=== PATIENT | female | born 1990 | race Caucasian/White ===

== ENCOUNTER 2024-06-29 09:07 | Inpatient (IN) | payer BC ==
[2024-06-11 09:31] VITALS: BMI 21.6
[2024-07-05] MEDS: Lactated Ringer's 1,000 ML IV SCH (19:40)
[2024-07-05] MEDS ORDERED: Carboprost 250 MCG/ML AMP IM PRN (21:07)
[2024-07-05] MEDS ORDERED: Promethazine HCl 25 MG/ML VIAL IM PRN ×2 (21:07→22:15)
[2024-07-05] MEDS ORDERED: fentaNYL 50 mcg/mL 1 mL Vial SLOW IVP PRN (21:07)
[2024-07-05] MEDS ORDERED: Lidocaine 1% (PF) 30 ML VIAL SC PRN (21:07)
[2024-07-05] MEDS ORDERED: Acetaminophen 500 MG TAB PO PRN (21:07)
[2024-07-05] MEDS ORDERED: hydrALAZINE 20 MG/ML VIAL SLOW IVP PRN (21:07)
[2024-07-05] MEDS ORDERED: Ondansetron PF 4 MG/2 ML Vial IVP PRN ×2 (21:07→22:15)
[2024-07-05] MEDS ORDERED: Diphenoxylate HCl/Atropine Tablet PO PRN (21:07)
[2024-07-05] MEDS ORDERED: Misoprostol 200 MCG TAB PR PRN (21:07)
[2024-07-05] MEDS ORDERED: Methylergonovine 0.2 MG/ML VIAL IM PRN (21:07)
[2024-07-05] MEDS ORDERED: Ibuprofen 800 MG TAB PO PRN (21:07)
[2024-07-05] MEDS ORDERED: HYDROcodone/Acetaminophen 5/325 mg Tablet PO PRN (21:07)
[2024-07-05] MEDS ORDERED: Oxytocin 30 units/NS 500 ML 500 ML IV SCH (21:15)
[2024-07-05 21:22] LABS: Hematocrit 38.4 % (34.9-44.5); Hemoglobin 13.8 g/dL (12.0-15.5); Mean Corpuscular HGB CONC 35.9 g/dL (32.0-36.0); Mean Corpuscular Hemoglobin 33.7 pg (27.0-33.0); Mean Corpuscular Volume 93.7 fL (81.6-98.3); Mean Platelet Volume 11.1 fL (7.4-10.4); Platelet Count 132 10x3/uL (150-450); White Blood Cell (WBC) Count 6.2 10x3/uL (3.5-10.5)
[2024-07-05 21:46] LABS: HBsAg Index 0.25 S/CO (0-0.99); Hep B Surf Ag - L&D Non-Reactive S/CO (NonReactive); Syphilis Antibody Nonreactive (Nonreactive); Syphilis Antibody Index 0.06 S/CO (<1.00 Non-Reactive)
[2024-07-05] MEDS ORDERED: Naloxone HCl 0.4 mg/ml Vial IVP PRN ×2 (22:15)
[2024-07-05] MEDS ORDERED: diphenhydrAMINE 50 MG/ML VIAL IVP PRN (22:15)
[2024-07-05] MEDS ORDERED: Lactated Ringer's 500 ML IV PRN (22:15)
[2024-07-05] MEDS ORDERED: Acetaminophen 325 MG TAB PO PRN (22:15)
[2024-07-05] MEDS ORDERED: Communication Order-Pharmacy FS SCH (22:15)
[2024-07-05] MEDS ORDERED: Moisturizing Cream (Eucerin) 113 GM JAR TOP PRN (22:15)
[2024-07-05] MEDS: fentaNYL 2 mcg/Ropivacaine 0.2% Epidural 100 ML CADD EPIDURAL SCH (22:34)
[2024-07-06] MEDS: Penicillin G Potassium 5 MILL.UNITS in Sodium Chloride 0.9% 100 ML IVPB SCH (00:05)
[2024-07-06] MEDS: ePHEDrine Sulfate 50 MG/10 ML VIAL SLOW IVP PRN (02:18)
[2024-07-06] MEDS: Penicillin G 2.5 MILL.units 2.5 MILL.UNITS in Premix 1 BAG IVPB SCH (04:34)
[2024-07-06] MEDS: Oxytocin 30 units/NS 500 ML 500 ML IV SCH (08:18)
[2024-07-06 11:27] LABS: Analyzer IN Cardio CS NICU; RapidComm Collect By cbn
[2024-07-06 11:28] LABS: Analyzer IN Cardio CS NICU; RapidComm Collect By cbn; pH (Cord, venous) 7.326 (7.250-7.350)
[2024-07-06] MEDS ORDERED: Naloxone HCl 0.4 mg/ml Vial IV PRN (11:44)
[2024-07-06] MEDS ORDERED: Ondansetron PF 4 MG/2 ML Vial IVP PRN ×3 (11:44→14:03)
[2024-07-06] MEDS ORDERED: Naloxone HCl 0.4 mg/ml Vial IVP PRN ×2 (11:44)
[2024-07-06] MEDS ORDERED: fentaNYL 50 mcg/mL 1 mL Vial SLOW IVP PRN (11:44)
[2024-07-06] MEDS ORDERED: diphenhydrAMINE 50 MG/ML VIAL IVP PRN (11:44)
[2024-07-06] MEDS ORDERED: Moisturizing Cream (Eucerin) 113 GM JAR TOP PRN (11:44)
[2024-07-06] MEDS ORDERED: Promethazine HCl 25 MG/ML VIAL IM PRN ×2 (11:44→14:03)
[2024-07-06] MEDS ORDERED: Meperidine HCl/PF 25 MG (1 mL) VIAL SLOW IVP PRN (11:44)
[2024-07-06] MEDS ORDERED: Communication Order-Pharmacy FS SCH (11:45)
[2024-07-06] MEDS: Azithromycin 500 MG VIAL ONE (13:59)
[2024-07-06] MEDS: CEFAZOLIN 2 GM VIAL ONE (13:59)
[2024-07-06] MEDS: Dexamethasone 10 MG/ML VIAL ONE (13:59)
[2024-07-06] MEDS: Lidocaine 2% MPF 10 ML AMP (For Epidural Use) ONE (13:59)
[2024-07-06] MEDS: Ondansetron PF 4 MG/2 ML Vial ONE (14:00)
[2024-07-06] MEDS: Morphine PF 10 MG/10 ML VIAL ONE (14:00)
[2024-07-06] MEDS: Ketorolac Tromethamine 30 MG (1 mL) VIAL ONE (14:00)
[2024-07-06] MEDS: Oxytocin 10 UNITS/ML VIAL ONE (14:01)
[2024-07-06] MEDS: Phytonadione Neonatal 1 MG/0.5 ML AMP ONE (14:01)
[2024-07-06] MEDS: Erythromycin Base 0.5% Oint 1 GM TUBE ONE (14:01)
[2024-07-06] MEDS: Promethazine HCl 25 MG/ML VIAL ONE (14:01)
[2024-07-06] MEDS ORDERED: hydrALAZINE 20 MG/ML VIAL SLOW IVP PRN (14:03)
[2024-07-06] MEDS ORDERED: Acetaminophen 325 MG TAB PO PRN (14:03)
[2024-07-06] MEDS ORDERED: diphenhydrAMINE 25 MG CAP PO PRN (14:03)
[2024-07-06] MEDS ORDERED: Lanolin Ointment 7 GM TUBE TOP PRN (14:03)
[2024-07-06] MEDS ORDERED: Bisacodyl 10 MG SUPP PR PRN (14:03)
[2024-07-06] MEDS: Boostrix 0.5 ML (Tdap) VIAL (>/=7 yrs of age) IM ONE (15:12)
[2024-07-06] MEDS: Ketorolac Tromethamine 30 MG (1 mL) VIAL IVP SCH (17:40)
[2024-07-06] MEDS ORDERED: ePHEDrine Sulfate 50 MG/10 ML VIAL ONE (18:00)
[2024-07-06] MEDS ORDERED: Bupivacaine/Epinephrine 0.25% 30 ML VIAL ONE (18:00)
[2024-07-06] MEDS ORDERED: Lidocaine 2% MPF 10 ML AMP (For Epidural Use) ONE (18:00)
[2024-07-06] MEDS: Docusate 100 MG CAP PO SCH (21:03)
[2024-07-06] MEDS ORDERED: HYDROcodone/Acetaminophen 5/325 mg Tablet PO PRN (23:46)
[2024-07-07] MEDS: Ferrous Sulfate 325 MG TAB PO SCH (02:43)
[2024-07-07 05:15] LABS: Hematocrit 31.9 % (34.9-44.5); Hemoglobin 11.4 g/dL (12.0-15.5); Mean Corpuscular HGB CONC 35.7 g/dL (32.0-36.0); Mean Corpuscular Hemoglobin 33.6 pg (27.0-33.0); Mean Corpuscular Volume 94.1 fL (81.6-98.3); Mean Platelet Volume 10.4 fL (7.4-10.4); Platelet Count 108 10x3/uL (150-450); RBC Distribution Width 13.1 % (11.5-14.5); Red Blood Cell (RBC) Count 3.39 10x6/uL (3.90-5.03); White Blood Cell (WBC) Count 12.2 10x3/uL (3.5-10.5)
[2024-07-07] MEDS: HYDROcodone/Acetaminophen 5/325 mg Tablet PO PRN (09:01)
[2024-07-07] MEDS: Simethicone Chewable 80 MG TAB PO PRN (09:02)
[2024-07-07] MEDS: Prenatal Vitamin 1 TAB PO SCH (09:02)
[2024-07-07] MEDS: Ibuprofen 800 MG TAB PO SCH (14:44)
[2024-07-08 11:51] VITALS: BP 112/69; TEMP 98
== END 2024-07-08 17:30 | disposition home or self-care (01) | DRG 788 ==
LOC: CSHLD 07-05 18:04 → CSHPP 07-06 14:10
PROVIDERS: ADMIT Student in an Organized Health Care Education/Training Program; ATTEND Student in an Organized Health Care Education/Training Program
PROC: 10D00Z1 Extraction of Products of Conception, Low, Open Approach (ICD-10-PCS; principal; 2024-07-06)
DX: O34.211 Maternal care for low transverse scar from previous cesarean delivery (principal); O48.0 Post-term pregnancy; O24.429 Gestational diabetes mellitus in childbirth, unspecified control; Z3A.41 41 weeks gestation of pregnancy; Z37.0 Single live birth; O76 Abnormality in fetal heart rate and rhythm complicating labor and delivery; O99.824 Streptococcus B carrier state complicating childbirth; O66.41 Failed attempted vaginal birth after previous cesarean delivery
CPT/HCPCS: 36415; 51702; 82805; 85027; 86780; 86850; 86900; 86901; 87340; J1100; J1885; J2274; J2405; J2540; J2550; J2590; J7120